=== PATIENT | female | born 1980 | race Caucasian/White ===

== ENCOUNTER 2017-07-08 03:47 | Emergency (ER) | payer MEDICAID ==
[~2017-07-08] VITALS: Ht 149.9 cm; Wt 81.8 kg
[2017-07-08] MEDS ORDERED: IBUP-2070 PO (04:01)
[2017-07-08] MEDS ORDERED: KETOROLAC TROMETHAMINE 60 MG/2 ML VIAL IM ONE (06:30)
[2017-07-08] MEDS ORDERED: GENTAMICIN SULFATE 0.3% OPHTHALMIC SOLUTION 5 ML OU ONE (06:45)
[2017-07-08] MEDS ORDERED: TraMADol HCL 50 MG TABLET PO ONE (09:45)
[2017-07-08] MEDS ORDERED: METHOCARBAMOL 500 MG TABLET PO ONE (09:45)
[2017-07-08 10:40] VITALS: BP 131/65
== END 2017-07-08 10:46 | disposition home or self-care (01) ==
LOC: EMS 03:48
DX: S46.911A Strain of unspecified muscle, fascia and tendon at shoulder and upper arm level, right arm, initial encounter (principal); S63.501A Unspecified sprain of right wrist, initial encounter; X58.XXXA Exposure to other specified factors, initial encounter; Y93.89 Activity, other specified; Y92.89 Other specified places as the place of occurrence of the external cause; Y99.8 Other external cause status
CPT/HCPCS: 29125; 96372; 99283; J1885

== ENCOUNTER 2018-01-19 17:57 | Emergency (ER) | payer MEDICAID ==
[~2018-01-19] VITALS: Ht 162.6 cm; Wt 81.8 kg
[~2018-01-19 17:57] MED LIST: IBUP-2070 PO
[2018-01-19] MEDS: IBUPROFEN 800 MG TABLET PO ONE (19:16)
[2018-01-19] MEDS: AMOXICILLIN TRIHYDRATE 250 MG CAPSULE PO ONE (19:16)
[2018-01-19 19:36] VITALS: BP 129/65
== END 2018-01-19 19:37 | disposition home or self-care (01) ==
LOC: EMS 17:58
DX: H72.92 Unspecified perforation of tympanic membrane, left ear (principal); Z98.51 Tubal ligation status; Z98.890 Other specified postprocedural states
CPT/HCPCS: 99283

== ENCOUNTER 2019-11-13 21:27 | Emergency (ER) | payer MEDICAID ==
[~2019-11-13] VITALS: Ht 157.5 cm; Wt 77.3 kg
[2019-11-13] MEDS ORDERED: ONDANSETRON HCL 4 MG/2 ML VIAL IVP ONE (22:15)
[2019-11-13] MEDS ORDERED: KETOROLAC TROMETHAMINE 30 MG/ML VIAL IVP ONE (22:15)
[2019-11-13] MEDS ORDERED: SODIUM CHLORIDE 0.9% 1,000 ML IV ONE (22:15)
[2019-11-13] MEDS ORDERED: ACETAMINOPHEN 500 MG TABLET PO ONE (22:15)
[2019-11-13 22:31] LABS: BASOPHILS % (AUTO) 0.3 % (0.0-2.0); EOSINOPHILS % (AUTO) 4.4 % (1.0-6.0); HEMATOCRIT 38.7 % (36-46); HEMOGLOBIN 12.2 g/dL (12.0-16.0); LYMPHOCYTES # (AUTO) 2.2 K/uL (1.0-4.8); LYMPHOCYTES % (AUTO) 23.4 % (22.0-44.0); MEAN CORPUSCULAR HEMOGLOBIN 23.9 pg (26.0-34.0); MEAN CORPUSCULAR HGB CONC 31.5 G/dL (31.0-37.0); MEAN CORPUSCULAR VOLUME 76 fL (80-100); MONOCYTES # (AUTO) 0.5 K/uL (0.1-1.0); MONOCYTES % (AUTO) 5.2 % (2.0-9.0); NEUTROPHILS # (AUTO) 6.2 K/uL (1.8-7.7); NEUTROPHILS % (AUTO) 66.7 % (40.0-70.0); PLATELET COUNT (AUTO) 248 K/uL (150-450); RED CELL DISTRIBUTION WIDTH 20.1 % (11.5-14.5)
[2019-11-13 22:46] LABS: ANION GAP 9 mmol/L (8-16); CALCIUM, TOTAL 9.1 mg/dL (8.8-10.5); CARBON DIOXIDE 28 mmol/L (22-29); CHLORIDE 103 mmol/L (98-107); CREATININE 0.48 mg/dL (0.60-1.30); GLOMERULAR FILTR. RATE CALC > 60 mL/min (>60); GLUCOSE,RANDOM 98 mg/dL (70-110); POTASSIUM 3.6 mmol/L (3.5-5.1); SODIUM SERUM 140 mmol/L (136-145); UREA NITROGEN, BLOOD 10 mg/dL (7-18)
[2019-11-13 23:04] LABS: ALANINE AMINOTRANSFERASE 44 U/L (12-78); ALBUMIN 4.3 g/dL (3.4-5.0); ALKALINE PHOSPHATASE 74 U/L (46-116); ASPARTATE AMINOTRANSFERASE 20 U/L (15-37); BILIRUBIN,TOTAL 0.4 mg/dL (0.1-1.0); HCG,QUANTITATIVE < 1 mIU/mL (0-6); LIPASE 69 U/L (73-393); TOTAL PROTEIN, SERUM 7.4 g/dL (6.4-8.2)
[2019-11-13] MEDS ORDERED: SODIUM CHLORIDE 0.9% 100 ML ONE (23:12)
[2019-11-13] MEDS ORDERED: IOVERSOL 350 MG/ML 100 ML VIAL ONE (23:12)
[2019-11-14] MEDS ORDERED: MORPHINE SULFATE 2 MG/ML SYRINGE IVP ONE (00:30)
[2019-11-14 00:36] LABS: APPEARANCE,URINE CLEAR (CLEAR); BILIRUBIN,URINE NEGATIVE (NEGATIVE); GLUCOSE, URINE (UA) NEGATIVE (NEGATIVE); KETONES,URINE NEGATIVE (NEGATIVE); LEUKOCYTE ESTERASE ,URINE NEGATIVE (NEGATIVE); NITRATE,URINE NEGATIVE (NEGATIVE); OCCULT BLOOD,URINE NEGATIVE (NEGATIVE); PH,URINE 6.5 (5.0-8.0); PROTEIN,URINE NEGATIVE (NEGATIVE); UROBILINOGEN,URINE 0.2 mg/dL (<=1.0)
[2019-11-14] MEDS ORDERED: HYDROCODONE/ACETAMINOPHEN 5-325 MG TABLET PO ONE (02:00)
[2019-11-14 02:35] VITALS: BP 141/77
== END 2019-11-14 02:40 | disposition home or self-care (01) ==
LOC: EMS 21:28
DX: R10.9 Unspecified abdominal pain (principal); R10.2 Pelvic and perineal pain; R11.0 Nausea; Z98.51 Tubal ligation status
CPT/HCPCS: 36415; 74177; 76817; 80053; 81003; 83690; 84702; 85025; 99285; J7050; Q9967

== ENCOUNTER 2023-01-31 18:12 | Emergency (ER) | payer MEDICAID ==
[~2023-01-31] VITALS: Ht 144.8 cm; Wt 77.3 kg
[2023-01-31 18:16] VITALS: TEMP 98
[2023-01-31] MEDS ORDERED: CHOL500013 PO (18:20)
[2023-01-31] MEDS ORDERED: TERB250T90 PO (18:20)
[2023-01-31] MEDS ORDERED: FERR-72 PO (18:20)
[2023-01-31] MEDS ORDERED: DiphenhydrAMINE HCL 50 MG/ML VIAL IM ONE (18:30)
[2023-01-31] MEDS ORDERED: PredniSONE 20 MG TABLET PO ONE (18:30)
[2023-01-31] MEDS ORDERED: FAMOTIDINE 20 MG TABLET PO ONE (18:30)
[2023-01-31 18:46] VITALS: BP 146/82; PULSE 78; RESP 16
[2023-01-31] MEDS ORDERED: DIPH25CA53 PO (19:29)
[2023-01-31] MEDS ORDERED: PRED-554 PO (19:29)
== END 2023-01-31 20:25 | disposition home or self-care (01) ==
LOC: EMS 18:13
DX: T78.40XA Allergy, unspecified, initial encounter (principal); Z98.51 Tubal ligation status; Z98.890 Other specified postprocedural states
CPT/HCPCS: 99283; 96372; J1200; J7512